=== PATIENT | female | born 1990 | race Caucasian/White ===

== ENCOUNTER 2016-10-21 16:39 | Emergency (ER) | payer MEDICAID, OTHER ==
[~2016-10-21] VITALS: Ht 172.7 cm; Wt 59.0 kg
[~2016-10-21 16:39] MED LIST: ACET50TA PO; ANUS2.5C2 TOP; DOCU10CA PO; FERR325T3 PO; IBUP80TA PO; IRON325T PO; PRENTAB40 PO; VITAPRTA PO
[2016-10-21 16:40] VITALS: BP 127/78
[2016-10-21] MEDS ORDERED: ESCI10TA2 (16:49)
[2016-10-21] MEDS ORDERED: [UNRECOGNIZED DRUG - OTHER] PO (16:49)
[2016-10-21] MEDS ORDERED: MULT1TAB18 PO (16:49)
[2016-10-21] MEDS ORDERED: ACETAMINOPHEN 325 MG TAB PO ONE (17:30)
--- NOTE | 2016-10-22 09:32 | REP ---
RIGHT TOES: HISTORY: None provided. __ There is no acute fracture or dislocation. The joint spaces are normal in appearance. IMPRESSION: There is no acute fracture or dislocation. Signed by Eliot Phipps MD 10/22/2016 09:37 A
== END 2016-10-21 18:07 | disposition home or self-care (01) ==
LOC: M ED 17:15
DX: S93.522A Sprain of metatarsophalangeal joint of left great toe, initial encounter (principal); X50.0XXA Overexertion from strenuous movement or load, initial encounter; Y92.019 Unspecified place in single-family (private) house as the place of occurrence of the external cause; Y93.01 Activity, walking, marching and hiking; Y99.8 Other external cause status; Z91.018 Allergy to other foods; Z79.899 Other long term (current) drug therapy

== ENCOUNTER 2016-11-15 01:03 | Emergency (ER) | payer MEDICAID, OTHER ==
[~2016-11-15] VITALS: Ht 172.7 cm; Wt 56.8 kg
[~2016-11-15 01:03] MED LIST changes: +ESCI10TA2; +MULT1TAB18 PO; +[UNRECOGNIZED DRUG - OTHER] PO
[2016-11-15] MEDS ORDERED: vitamin c PO (01:12)
[2016-11-15] MEDS ORDERED: VALT1TAB PO (01:43)
[2016-11-15] MEDS ORDERED: valACYclovir HCL 500 MG TAB PO ONE (01:45)
[2016-11-15] MEDS ORDERED: ACYCLOVIR 200 MG CAPSULE PO ONE (01:45)
[2016-11-15 01:55] VITALS: BP 108/69
== END 2016-11-15 02:05 | disposition home or self-care (01) ==
LOC: M ED 01:03
DX: B02.9 Zoster without complications (principal); F32.9 Major depressive disorder, single episode, unspecified; Z79.899 Other long term (current) drug therapy; Z91.018 Allergy to other foods

== ENCOUNTER 2016-12-08 16:29 | Emergency (ER) | payer MEDICAID, OTHER ==
[~2016-12-08] VITALS: Ht 172.7 cm; Wt 59.9 kg
[~2016-12-08 16:29] MED LIST changes: +VALT1TAB PO; +vitamin c PO
[2016-12-08 16:30] VITALS: BP 126/78
== END 2016-12-08 17:50 | disposition home or self-care (01) ==
LOC: M ED 16:29
DX: R04.0 Epistaxis (principal); Z79.899 Other long term (current) drug therapy; Z91.018 Allergy to other foods

== ENCOUNTER 2016-12-22 11:08 | Emergency (ER) | payer OTHER ==
[~2016-12-22] VITALS: Ht 172.7 cm; Wt 56.8 kg
[2016-12-22] MEDS ORDERED: ALBUTEROL SULFATE 2.5 MG/0.5 ML INH NEB SOLN NEB ONE (12:00)
[2016-12-22 12:31] LABS: BASO % 0.4 % (0.0-1.0); EOS % 0.5 % (0.0-3.0); LARGE UNSTAINED CELL # 0.1 K/mm3 (0.0-0.4); LARGE UNSTAINED CELL % 1.9 % (0.0-4.0); LYMPH # 1.3 K/mm3 (1.5-6.5); LYMPH % 25.5 % (24.0-44.0); MEAN CORPUSCULAR HEMOGLOBIN 30.3 pg (27.0-33.0); MEAN CORPUSCULAR HGB CONC 33.9 g/dl (32.0-36.5); MEAN CORPUSCULAR VOLUME 89.4 fl (80.0-96.0); MONO # 0.2 K/mm3 (0.0-0.8); MONO % 5.1 % (0.0-5.0); NEUTROPHILS # 3.2 K/mm3 (1.8-7.7); NEUTROPHILS % 66.6 % (36.0-66.0); PLATELET COUNT, AUTOMATED 236 k/mm3 (150-450); WHITE BLOOD COUNT 4.8 K/mm3 (4.0-10.0)
[2016-12-22 12:40] LABS: ANION GAP 4 MEQ/L (8-16); BLOOD UREA NITROGEN 10 MG/DL (7-18); CALCIUM LEVEL 8.9 MG/DL (8.5-10.1); CARBON DIOXIDE LEVEL 31 MEQ/L (21-32); CHLORIDE LEVEL 105 MEQ/L (98-107); CREATININE FOR GFR 0.73 MG/DL (0.55-1.02); GLOMERULAR FILTRATION RATE > 60.0 (>60); GLUCOSE, FASTING 87 MG/DL (70-105); POTASSIUM SERUM 4.4 MEQ/L (3.5-5.1); SODIUM LEVEL 140 MEQ/L (136-145)
[2016-12-22] MEDS ORDERED: ALBU17IN INH (13:54)
--- NOTE | 2016-12-22 13:57 | REP ---
CHEST PA AND LATERAL: 12/22/2016 CLINICAL HISTORY: Dyspnea and cough. Two views were provided. There are no prior studies. Lungs are well inflated. The CP angles sharply defined. There is no effusion, infiltrate, atelectasis or mass. No pneumothorax or pneumomediastinum. Heart and mediastinal contours are normal. Airway and aorta unremarkable. Bones intact. IMPRESSION: No acute cardiopulmonary change. Signed by Carlos Mederos MD 12/22/2016 10:20 P
[2016-12-22 14:08] VITALS: BP 112/76
--- NOTE | 2016-12-23 09:44 | ECGEPIP ---
Stationary ECG Study [facility] - ED Test Date: 2016-12-22 Pat Name: NAISH SHARP Department: Room: - Gender: F Banquet Captain: TM : 1990 Requested By: JUAN RAMON GAVIN PA-C Order Number: [id number] Reading MD: Telly Arthur Measurements Intervals [place] Rate: 70 P: 55 ME: 133 QRS: 74 QRSD: 87 T: 35 QT: 376 QTc: 408 Interpretive Statements SINUS RHYTHM INC. RBBB NO PRIORS Electronically Signed On 12-23-2016 9:44:52 EDT by Telly Arthur
== END 2016-12-22 14:09 | disposition home or self-care (01) ==
LOC: M ED 11:08
DX: J98.01 Acute bronchospasm (principal); F41.9 Anxiety disorder, unspecified; F32.9 Major depressive disorder, single episode, unspecified; J30.2 Other seasonal allergic rhinitis; Z79.3 Long term (current) use of hormonal contraceptives; Z79.899 Other long term (current) drug therapy; Z91.018 Allergy to other foods

== ENCOUNTER → 2017-04-10 | Outpatient (CLI) | payer OTHER ==
[~2017-04-10] MED LIST changes: +ALBU17IN INH
[2017-04-10 13:33] LABS: COMPLEMENT C3 114 MG/DL (90-180); COMPLEMENT C4 21.4 MG/DL (10-40); IMMUNOGLOBULIN G 1120 MG/DL (681-1648); IMMUNOGLOBULIN M 202 MG/DL (40-230)
[2017-04-10 14:07] LABS: IMMUNOGLOBULIN E < 3.6 IU/ML (<100)
[2017-04-14 14:10] LABS: ALPHA 1 ANTITRYPSIN 174 mg/dL (90-200); D001-IgE D pteronyssinus <0.10 kU/L (Class 0); E001-IgE Cat Epith/Dander < 0.10 kU/L (Class 0); E005-IgE Dog Dander < 0.10 kU/L (Class 0); F002-IgE Milk < 0.10 kU/L (Class 0); F004-IgE Wheat < 0.10 kU/L (Class 0); F013-IgE Peanut < 0.10 kU/L (Class 0); F014-IgE Soybean < 0.10 kU/L (Class 0); F026-IgE Pork < 0.10 kU/L (Class 0); F027-IgE Beef < 0.10 kU/L (Class 0); F044-IGE STRAWBERRY <0.10 kU/L (Class 0); F245-IgE Egg, Whole < 0.10 kU/L (Class 0); FX02-IgE Food Mix (Sea Foods) Negative (.); G002-IgE Bermuda Grass < 0.10 kU/L (Class 0); G008-IgE Kentucky Bluegrass < 0.10 kU/L (Class 0); M001-IgE Penicillium chrysogen < 0.10 kU/L (Class 0); M002 IgE Cladosporium herbaru < 0.10 kU/L (Class 0); M003 IgE Aspergillus fumigatu < 0.10 kU/L (Class 0); M006-IgE Alternaria alternata < 0.10 kU/L (Class 0); T001-IgE Maple/Box Elder < 0.10 kU/L (Class 0); T003-IgE Common Silver Birch < 0.10 kU/L (Class 0); T007-IgE Oak, White < 0.10 kU/L (Class 0); T008-IgE Elm, American < 0.10 kU/L (Class 0); T015-IgE Ash, White < 0.10 kU/L (Class 0); T041-IgE Hickory, White < 0.10 kU/L (Class 0); W001-IgE Ragweed, Short < 0.10 kU/L (Class 0); W009-IgE Plantain, English < 0.10 kU/L (Class 0); W014-IgE Pigweed, Rough < 0.10 kU/L (Class 0); W018-IgE Sheep Sorrel < 0.10 kU/L (Class 0)
== END ==
LOC: M LAB 12:29
PROVIDERS: ATTEND Allergy & Immunology
DX: R05 Cough (principal)

== ENCOUNTER → 2017-07-24 | Outpatient (CLI) | payer OTHER | LOC: M RAD 09:04 | DX: J32.4 Chronic pansinusitis (principal) | CPT/HCPCS: 70486 ==

== ENCOUNTER 2017-09-14 22:11 | Emergency (ER) | payer OTHER, SELFPAY, MEDICAID ==
[2017-09-14 23:49] LABS: BASO % 0.5 % (0.0-1.0); EOS % 0.3 % (0.0-3.0); HEMATOCRIT 41.2 % (36.0-47.0); HEMOGLOBIN 13.4 g/dl (12.0-15.5); IMMATURE GRANULOCYTE % 0.2 % (0-3.0); LYMPH # 1.6 10^3/uL (1.5-6.5); LYMPH % 17.7 % (24.0-44.0); MEAN CORPUSCULAR HEMOGLOBIN 28.7 pg (27.0-33.0); MEAN CORPUSCULAR HGB CONC 32.5 g/dl (32.0-36.5); MEAN CORPUSCULAR VOLUME 88.2 fl (80.0-96.0); MONO # 0.7 10^3/uL (0.0-0.8); MONO % 7.6 % (0.0-5.0); NEUTROPHILS # 6.4 10^3/uL (1.8-7.7); NEUTROPHILS % 73.7 % (36.0-66.0); PLATELET COUNT, AUTOMATED 282 10^3/uL (150-450); RED BLOOD COUNT 4.67 10^6/uL (4.00-5.40); RED CELL DISTRIBUTION WIDTH 12.7 % (11.5-14.5); WHITE BLOOD COUNT 8.7 10^3/uL (4.0-10.0)
[2017-09-14 23:52] LABS: CONTROL LINE HCG INT CTR LINE PRESENT; HCG, SERUM QUALITATIVE NEGATIVE (NEGATIVE)
[2017-09-14 23:59] LABS: ALBUMIN 3.8 GM/DL (3.2-5.2); ALBUMIN/GLOBULIN RATIO 0.97 (1.00-1.93); ALKALINE PHOSPHATASE 72 U/L (45-117); ALT/SGPT 106 U/L (12-78); ANION GAP 6 MEQ/L (8-16); AST/SGOT 85 U/L (7-37); BILIRUBIN,DIRECT 0.7 MG/DL (0.0-0.2); BLOOD UREA NITROGEN 12 MG/DL (7-18); CALCIUM LEVEL 9.2 MG/DL (8.5-10.1); CARBON DIOXIDE LEVEL 28 MEQ/L (21-32); CHLORIDE LEVEL 108 MEQ/L (98-107); GLOMERULAR FILTRATION RATE > 60.0 (>60); GLUCOSE, FASTING 88 MG/DL (70-100); LIPASE 167 U/L (73-393); POTASSIUM SERUM 4.1 MEQ/L (3.5-5.1); SODIUM LEVEL 142 MEQ/L (136-145); TOTAL PROTEIN 7.7 GM/DL (6.4-8.2)
[2017-09-15] MEDS: NS 1,000 ML IV (00:04)
[2017-09-15] MEDS: MORPHINE 4 MG/ML 1ML VIAL/SYRINGE (J2270) IV (00:05)
[2017-09-15] MEDS: ONDANSETRON 4MG/2ML VIAL (J2405) IV (00:05)
[2017-09-15] MEDS: OXYCODONE/APAP 5MG/325MG(BULK FOR ED) 1 TABLET PO (02:00)
== END 2017-09-15 02:06 | disposition home or self-care (01) ==
LOC: M ED 22:11
DX: K80.70 Calculus of gallbladder and bile duct without cholecystitis without obstruction (principal); Z91.018 Allergy to other foods
CPT/HCPCS: J2270

== ENCOUNTER → 2017-10-12 | Day surgery (SDC) | payer OTHER ==
[~2017-10-12] MED LIST changes: -ACET50TA PO; -ALBU17IN INH; -ANUS2.5C2 TOP; -DOCU10CA PO; -ESCI10TA2; -FERR325T3 PO; -IBUP80TA PO; -IRON325T PO; +LIDOCAINE 2% INJ 100 MG/5 ML SDV (FOR ANES.) As Ordered; +MIDAZOLAM INJ 2 MG/2 ML VIAL (J2250) As Ordered; -MULT1TAB18 PO; +ONDANSETRON 4MG/2ML VIAL (J2405) As Ordered; -PRENTAB40 PO; +PROPOFOL 200 MG/20 ML VIAL As Ordered; +ROCURONIUM BROMIDE 50 MG/5 ML VIAL As Ordered; -VALT1TAB PO; -VITAPRTA PO; -[UNRECOGNIZED DRUG - OTHER] PO; +dexameTHASONE 4 MG/ML 1ML VIAL (J1100) As Ordered; +fentaNYL 100 MCG/2 ML INJECTION (J3010) As Ordered; -vitamin c PO
== END | disposition home or self-care (01) ==
LOC: M SDC 11:00
DX: K80.20 Calculus of gallbladder without cholecystitis without obstruction (principal)

== ENCOUNTER → 2018-02-13 | Outpatient (REF) | payer OTHER | LOC: M SFHCPLAZ 07:46 | DX: R53.83 Other fatigue (principal) ==

== ENCOUNTER → 2018-02-13 | Outpatient (CLI) | payer OTHER ==
[2018-02-13 11:11] LABS: BASO % 0.5 % (0.0-1.0); EOS % 0.2 % (0.0-3.0); HEMATOCRIT 37.6 % (36.0-47.0); HEMOGLOBIN 12.3 g/dl (12.0-15.5); IMMATURE GRANULOCYTE % 0.2 % (0-3.0); LYMPH # 1.6 10^3/uL (1.5-6.5); LYMPH % 27.3 % (24.0-44.0); MEAN CORPUSCULAR HEMOGLOBIN 29.7 pg (27.0-33.0); MEAN CORPUSCULAR HGB CONC 32.7 g/dl (32.0-36.5); MEAN CORPUSCULAR VOLUME 90.8 fl (80.0-96.0); MONO # 0.4 10^3/uL (0.0-0.8); MONO % 6.9 % (0.0-5.0); NEUTROPHILS # 3.9 10^3/uL (1.8-7.7); NEUTROPHILS % 64.9 % (36.0-66.0); PLATELET COUNT, AUTOMATED 277 10^3/uL (150-450); RED BLOOD COUNT 4.14 10^6/uL (4.00-5.40); RED CELL DISTRIBUTION WIDTH 12.4 % (11.5-14.5)
[2018-02-13 12:22] LABS: ALBUMIN 3.6 GM/DL (3.2-5.2); ALBUMIN/GLOBULIN RATIO 1.03 (1.00-1.93); ALKALINE PHOSPHATASE 47 U/L (45-117); ALT/SGPT 29 U/L (12-78); ANION GAP 9 MEQ/L (8-16); AST/SGOT 16 U/L (7-37); BILIRUBIN,TOTAL 0.3 MG/DL (0.2-1.0); BLOOD UREA NITROGEN 11 MG/DL (7-18); CARBON DIOXIDE LEVEL 26 MEQ/L (21-32); CHLORIDE LEVEL 105 MEQ/L (98-107); CREATININE FOR GFR 0.69 MG/DL (0.55-1.30); FERRITIN 48 NG/ML (8-252); FREE T4 1.16 NG/DL (0.76-1.46); GLOMERULAR FILTRATION RATE > 60.0 (>60); GLUCOSE, FASTING 78 MG/DL (70-100); POTASSIUM SERUM 4.6 MEQ/L (3.5-5.1); SODIUM LEVEL 140 MEQ/L (136-145); TOTAL PROTEIN 7.1 GM/DL (6.4-8.2)
[2018-02-13 12:50] LABS: FOLATE 14.5 NG/ML; TOTAL 25(OH) VITAMIN D 28.6 NG/ML (30.0-100.0)
== END ==
LOC: M LAB 10:29
DX: R53.83 Other fatigue (principal)
CPT/HCPCS: 82746

== ENCOUNTER 2018-04-01 09:50 | Day surgery (SDC) | payer OTHER ==
[~2018-04-01 09:50] MED LIST changes: +LR 1,000 ML IV; -ONDANSETRON 4MG/2ML VIAL (J2405) As Ordered; -dexameTHASONE 4 MG/ML 1ML VIAL (J1100) As Ordered; -fentaNYL 100 MCG/2 ML INJECTION (J3010) As Ordered; +fentaNYL 250 MCG/5 ML INJECTION (J3010) As Ordered
[2018-04-01 10:36] LABS: CONTROL LINE UCG INT CTR LINE PRESENT; URINE PREG TEST NEGATIVE (NEGATIVE)
[2018-04-01] MEDS: LIDOCAINE W/EPINEPHRINE 1% 20ML VIAL As Ordered (12:25)
[2018-04-01] MEDS: METHYLENE BLUE 0.5% (5MG/ML) 10 ML AMP (PROVAYBLUE)(Q9968 PER 1MG) As Ordered (12:25)
[2018-04-01] MEDS: OXYMETAZOLINE NASAL SPRAY (AFRIN) As Ordered (12:25)
[2018-04-01] MEDS ORDERED: ONDANSETRON 4MG/2ML VIAL (J2405) As Ordered (12:28)
[2018-04-01] MEDS ORDERED: dexameTHASONE 4 MG/ML 1ML VIAL (J1100) As Ordered ×2 (12:28)
[2018-04-01] MEDS ORDERED: SUGAMMADEX SODIUM 500 MG/5 ML VIAL (BRIDION) As Ordered (13:01)
[2018-04-01] MEDS ORDERED: METOCLOPRAMIDE INJ 10MG/2ML VIAL (J2765) IV (13:45)
[2018-04-01] MEDS ORDERED: fentaNYL 100 MCG/2 ML INJECTION (J3010) IV (13:45)
[2018-04-01] MEDS ORDERED: PERCOCET 5MG/325MG TAB PO (13:45)
[2018-04-01] MEDS ORDERED: LR 1,000 ML IV (13:45)
[2018-04-01] MEDS ORDERED: ONDANSETRON 4MG/2ML VIAL (J2405) IV (13:45)
[2018-04-01] MEDS ORDERED: IBUPROFEN 800 MG TAB PO (13:45)
[2018-04-01] MEDS: PERCOCET 5MG/325MG TAB PO (14:10)
== END 2018-04-01 15:10 | disposition home or self-care (01) ==
LOC: M SDC 09:50
DX: J34.2 Deviated nasal septum (principal); J31.0 Chronic rhinitis; D64.9 Anemia, unspecified; F41.9 Anxiety disorder, unspecified; F32.9 Major depressive disorder, single episode, unspecified; R06.83 Snoring; Z91.018 Allergy to other foods; Z79.899 Other long term (current) drug therapy
CPT/HCPCS: 30420

== ENCOUNTER 2018-09-03 17:42 | Emergency (ER) | payer MEDICAID, OTHER ==
[~2018-09-03] VITALS: Ht 152.4 cm; Wt 61.4 kg
[~2018-09-03 17:42] MED LIST changes: +ALBU17IN INH; +ANUS2.5C2 TOP; +BUSP1TAB PO; +DOCU10CA PO; +ESCI10TA2 PO; +FERR325T3 PO; +FERR325T82 PO; +HYOS1TAB PO; +IBUP80TA PO; +IRON325T PO; -LIDOCAINE 2% INJ 100 MG/5 ML SDV (FOR ANES.) As Ordered; -LR 1,000 ML IV; +MAPA500T2 PO; -MIDAZOLAM INJ 2 MG/2 ML VIAL (J2250) As Ordered; +MODA200T15 PO; +MULT1TAB18 PO; +PRENTAB40 PO; -PROPOFOL 200 MG/20 ML VIAL As Ordered; -ROCURONIUM BROMIDE 50 MG/5 ML VIAL As Ordered; +VALT1TAB PO; +VITA100066 PO; +VITA500T PO; +VITAPRTA PO; +XULA1DIS TOP; +ZOFR4TAB14 PO; +[UNRECOGNIZED DRUG - OTHER] PO; -fentaNYL 250 MCG/5 ML INJECTION (J3010) As Ordered; +vitamin c PO
[2018-09-03] MEDS ORDERED: ADDE10TA (17:51)
[2018-09-03] MEDS ORDERED: ADDE15CA3 (17:51)
[2018-09-03] MEDS ORDERED: BUSP10TA (17:51)
[2018-09-03] MEDS ORDERED: AUGM875T28 PO (19:29)
[2018-09-03] MEDS ORDERED: MAGICMW SSP (19:29)
[2018-09-03] MEDS ORDERED: AUGMENTIN 875 MG TAB PO ONE (19:30)
[2018-09-03] MEDS ORDERED: ACETAMINOPHEN 500 MG TAB PO ONE (19:30)
[2018-09-03 19:40] VITALS: BP 127/88
== END 2018-09-03 19:44 | disposition home or self-care (01) ==
LOC: M ED 17:42
DX: J02.0 Streptococcal pharyngitis (principal); Z91.018 Allergy to other foods; Z79.899 Other long term (current) drug therapy

== ENCOUNTER → 2018-11-28 | Outpatient (REF) | payer OTHER, MEDICAID ==
[~2018-11-28] MED LIST changes: +ADDE10TA; +ADDE15CA3; +AUGM875T28 PO; +BUSP10TA; +BUSP10TA PO; +MAGICMW SSP; +[UNRECOGNIZED DRUG - OTHER] PO
[2018-11-28 19:07] LABS: ALBUMIN 3.4 GM/DL (3.2-5.2); ALT/SGPT 23 U/L (12-78); BILIRUBIN,TOTAL 0.2 MG/DL (0.2-1.0); BLOOD UREA NITROGEN 12 MG/DL (7-18); CALCIUM LEVEL 8.5 MG/DL (8.5-10.1); CARBON DIOXIDE LEVEL 27 MEQ/L (21-32); CHLORIDE LEVEL 105 MEQ/L (98-107); CHOLESTEROL LEVEL 166 MG/DL (<200); CHOLESTEROL RISK RATIO 2.049 (<5); CREATININE FOR GFR 0.77 MG/DL (0.55-1.30); FREE T4 1.07 NG/DL (0.76-1.46); GLOMERULAR FILTRATION RATE > 60.0 (>60); GLUCOSE, FASTING 85 MG/DL (70-100); HDL CHOLESTEROL 81 MG/DL (>40); LDL CHOLESTEROL 56 MG/DL (<100); NON-HDL-C 85 MG/DL; POTASSIUM SERUM 4.5 MEQ/L (3.5-5.1); SODIUM LEVEL 138 MEQ/L (136-145); TOTAL PROTEIN 7.2 GM/DL (6.4-8.2); TRIGLYCERIDES LEVEL 146 MG/DL (<150)
[2018-11-28 19:08] LABS: TOTAL 25(OH) VITAMIN D 22.5 NG/ML (30.0-100.0)
[2018-11-28 19:25] LABS: APPEARANCE, URINE CLEAR (CLEAR); BACTERIA, URINE AUTO NEGATIVE (NEGATIVE); BILIRUBIN, URINE AUTO NEGATIVE (NEGATIVE); BLOOD, URINE BLOOD NEGATIVE (NEGATIVE); COLOR, URINE YELLOW (YELLOW); GLUCOSE, URINE (UA) AUTO NEGATIVE (NEGATIVE); KETONE, URINE AUTO NEGATIVE (NEGATIVE); LEUKOCYTE ESTERASE, URINE AUTO NEGATIVE (NEGATIVE); MUCUS, URINE SMALL (NEGATIVE); NITRITE, URINE AUTO NEGATIVE (NEGATIVE); PROTEIN, URINE AUTO NEGATIVE (NEGATIVE); RBC, URINE AUTO 0 /HPF (0-3); SPECIFIC GRAVITY URINE AUTO 1.021 (1.002-1.035); SQUAMOUS EPITHELIAL CELL UR AU 2 /HPF (0-6); UROBILINOGEN, URINE AUTO 0.2 mg/dL (0.0-2.0); WBC, URINE AUTO 1 /HPF (0-3)
[2018-11-28 19:26] LABS: BASO % 0.4 % (0.0-1.0); EOS % 0.4 % (0.0-3.0); HEMATOCRIT 38.7 % (36.0-47.0); HEMOGLOBIN 12.2 g/dl (12.0-15.5); LYMPH # 1.7 10^3/uL (1.5-6.5); LYMPH % 20.6 % (24.0-44.0); MEAN CORPUSCULAR HEMOGLOBIN 29.5 pg (27.0-33.0); MEAN CORPUSCULAR HGB CONC 31.5 g/dl (32.0-36.5); MEAN CORPUSCULAR VOLUME 93.5 fl (80.0-96.0); MONO # 0.6 10^3/uL (0.0-0.8); MONO % 6.8 % (0.0-5.0); NEUTROPHILS % 71.4 % (36.0-66.0); PLATELET COUNT, AUTOMATED 260 10^3/uL (150-450); RED BLOOD COUNT 4.14 10^6/uL (4.00-5.40); WHITE BLOOD COUNT 8.4 10^3/uL (4.0-10.0)
[2018-11-28 19:37] LABS: HEMOGLOBIN A1c 5.8 %
== END ==
LOC: M LAB REF 16:48
PROVIDERS: ATTEND Nurse Practitioner Family
DX: Z13.9 Encounter for screening, unspecified (principal)

== ENCOUNTER 2019-03-01 15:41 | Emergency (ER) | payer MEDICAID, OTHER ==
[~2019-03-01] VITALS: Ht 172.7 cm; Wt 63.1 kg
[~2019-03-01 15:41] MED LIST changes: -BUSP10TA PO; -[UNRECOGNIZED DRUG - OTHER] PO
[2019-03-01] MEDS ORDERED: BUSP10TA PO (16:06)
[2019-03-01] MEDS ORDERED: [UNRECOGNIZED DRUG - OTHER] PO (16:06)
[2019-03-01 16:43] LABS: HEMATOCRIT 40.6 % (36.0-47.0); HEMOGLOBIN 13.4 g/dl (12.0-15.5); MEAN CORPUSCULAR HEMOGLOBIN 29.6 pg (27.0-33.0); MEAN CORPUSCULAR VOLUME 89.8 fl (80.0-96.0); PLATELET COUNT, AUTOMATED 278 10^3/uL (150-450); RED BLOOD COUNT 4.52 10^6/uL (4.00-5.40); WHITE BLOOD COUNT 9.3 10^3/uL (4.0-10.0)
[2019-03-01 17:09] LABS: AMPHETAMINES LEVEL URINE NEGATIVE (NEGATIVE); BARBITURATES URINE NEGATIVE (NEGATIVE); BENZODIAZEPINES URINE NEGATIVE (NEGATIVE); CANNABINOIDS URINE POSITIVE (NEGATIVE); COCAINE METABOLITE URINE NEGATIVE (NEGATIVE); METHADONE URINE NEGATIVE (NEGATIVE); OPIATES URINE NEGATIVE (NEGATIVE); PHENCYCLIDINE URINE NEGATIVE (NEGATIVE)
[2019-03-01 17:13] LABS: HCG, SERUM QUALITATIVE NEGATIVE (NEGATIVE)
[2019-03-01 17:31] LABS: ACETAMINOPHEN LEVEL < 2.0 UG/ML (10.0-30.0); ALBUMIN 3.8 GM/DL (3.2-5.2); ALT/SGPT 21 U/L (12-78); BILIRUBIN,DIRECT 0.2 MG/DL (0.0-0.2); BILIRUBIN,TOTAL 0.6 MG/DL (0.2-1.0); BLOOD UREA NITROGEN 14 MG/DL (7-18); CARBON DIOXIDE LEVEL 26 MEQ/L (21-32); CHLORIDE LEVEL 103 MEQ/L (98-107); ETHYL ALCOHOL (ETHANOL) < 0.003 % (0.000-0.010); GLOMERULAR FILTRATION RATE > 60.0 (>60); GLUCOSE, FASTING 102 MG/DL (70-100); POTASSIUM SERUM 4.3 MEQ/L (3.5-5.1); SALICYLATE LEVEL < 1.7 MG/DL (5.0-30.0); SODIUM LEVEL 136 MEQ/L (136-145); TOTAL PROTEIN 7.5 GM/DL (6.4-8.2)
[2019-03-01 20:04] VITALS: BP 141/93
== END 2019-03-01 20:07 | disposition home or self-care (01) ==
LOC: M ED 15:41
DX: R45.4 Irritability and anger (principal); Z73.4 Inadequate social skills, not elsewhere classified; Z91.018 Allergy to other foods; Z79.899 Other long term (current) drug therapy
CPT/HCPCS: 36415; 80048; 80076; 80307; 84443; 84703; 85027; 99284; G0480

== ENCOUNTER → 2019-04-05 | Outpatient (REF) | payer OTHER, MEDICAID ==
[~2019-04-05] MED LIST changes: +BUSP10TA PO; +[UNRECOGNIZED DRUG - OTHER] PO
[2019-04-05 18:52] LABS: URINE PREG TEST NEGATIVE (NEGATIVE)
== END ==
LOC: M LAB REF 10:48
PROVIDERS: ATTEND Nurse Practitioner Family
DX: Z32.01 Encounter for pregnancy test, result positive (principal)

== ENCOUNTER → 2019-12-29 | Outpatient (REF) | payer OTHER, MEDICAID ==
[~2019-12-29] MED LIST changes: +VITA-243 PO; -VITA500T PO
== END ==
LOC: M LAB REF 14:59
PROVIDERS: ATTEND Nurse Practitioner Family
DX: Z32.01 Encounter for pregnancy test, result positive (principal)

== ENCOUNTER 2020-01-16 14:15 | Emergency (ER) | payer MEDICAID, OTHER ==
[~2020-01-16] VITALS: Ht 172.7 cm; Wt 67.9 kg
[2020-01-16 15:52] LABS: BASO % 0.5 % (0.0-1.0); EOS % 0.5 % (0.0-3.0); HEMOGLOBIN 12.1 g/dl (12.0-15.5); LYMPH # 1.9 10^3/uL (1.5-5.0); LYMPH % 21.8 % (24.0-44.0); MEAN CORPUSCULAR HEMOGLOBIN 28.7 pg (27.0-33.0); MEAN CORPUSCULAR HGB CONC 32.7 g/dl (32.0-36.5); MEAN CORPUSCULAR VOLUME 87.7 fl (80.0-96.0); MONO # 0.6 10^3/uL (0.0-0.8); MONO % 6.3 % (0.0-5.0); NEUTROPHILS # 6.3 10^3/uL (1.5-8.5); NEUTROPHILS % 70.6 % (36.0-66.0); PLATELET COUNT, AUTOMATED 256 10^3/uL (150-450); RED BLOOD COUNT 4.22 10^6/uL (4.00-5.40); WHITE BLOOD COUNT 8.9 10^3/uL (4.0-10.0)
--- NOTE | 2020-01-16 16:32 | REPVR ---
PROCEDURE INFORMATION: Exam: US First Trimester, Transabdominal Exam date and time: 01/16/2020 4:06 PM Age: 29 years old Clinical indication: Lmp or gestational age (in weeks): 12/18/2019; Antepartum complications; Other: Vomiting and cramping; ; Additional info: , pelvic pain/cramping TECHNIQUE: Imaging protocol: Real-time transabdominal obstetrical ultrasound of the maternal pelvis and a first trimester , less than 14 weeks 0 days, with image documentation. COMPARISON: No relevant prior studies available. FINDINGS: Gestation: Single intrauterine gestational sac. Single yolk sac. Single pole. Embryonic/ heart rate: heart rate measures 167 bpm. Placenta: There is a small hypoechoic collection adjacent to the gestational sac, measuring 1.4 x 1.0 x 1.6 cm. This is favored to represent a small subchorionic hemorrhage. Amniotic fluid: Amniotic fluid is normal for gestational age. BIOMETRY: Gestational age (AUA): [place]-rump length measures 21 mm, compatible with a gestational age of 8 weeks and 5 days. Estimated due date (AUA): Estimated date of delivery is August 22, 2020. MATERNAL: Uterus: Unremarkable. Cervix: Unremarkable. Right adnexa: Dominant 1.8 cm right ovarian follicle. Positive right ovarian blood flow. Left adnexa: Normal appearing left ovary. Positive blood flow. Intraperitoneal space: No intraperitoneal free fluid. IMPRESSION: 1. Single viable intrauterine gestation, dating 8 weeks and 5 days. 2. Tiny subchorionic hemorrhage. Electronically signed by: Loreto Jarvis On 01/16/2020 16:32:02 PM
[2020-01-16 17:00] VITALS: BP 128/68
== END 2020-01-16 17:35 | disposition home or self-care (01) ==
LOC: M ED 14:15
DX: O20.9 Hemorrhage in early pregnancy, unspecified (principal); O26.891 Other specified pregnancy related conditions, first trimester; R10.2 Pelvic and perineal pain; Z3A.01 Less than 8 weeks gestation of pregnancy; Z91.018 Allergy to other foods

== ENCOUNTER → 2020-02-02 | Outpatient (CLI) | payer OTHER ==
--- NOTE | 2020-02-19 12:36 | REP ---
OBSTETRIC SONOGRAPHY: FIRST TRIMESTER STUDY HISTORY: Supervision of . FINDINGS: Transabdominal scanning confirms the presence of a single live intrauterine gestation. [place]-rump length of the embryonic pole is 46 mm. This corresponds with a gestational age estimate of 11 weeks 3 days. heart rate is recorded at 154 beats per minute. There is a subchorionic fluid collection consistent with small hemorrhage. This measures 1.9 x 0.5 x 4.4 cm. There is a small cystic area in the maternal left ovary consistent with corpus luteum. No gross anomaly. IMPRESSION: Single live intrauterine gestation at 11 weeks 3 days by crown-rump length. Estimated date of delivery (ANNA MARIE) by sonography 08/20/2020. Small subchorionic hemorrhage. MTDD
== END ==
LOC: M RAD 11:58
PROVIDERS: ATTEND Advanced Practice Midwife
DX: Z34.80 Encounter for supervision of other normal pregnancy, unspecified trimester (principal)

== ENCOUNTER → 2020-04-05 | Outpatient (CLI) | payer OTHER ==
--- NOTE | 2020-04-06 04:29 | REP ---
INDICATION: ANATOMY COMPARISON: None. TECHNIQUE: Transabdominal obstetrical ultrasound with color Doppler evaluation. FINDINGS: Examination demonstrates a single live intrauterine in breech presentation. motion is identified by technologist. Placenta is noted posterior and grade 0 without evidence for placenta previa or abruption. Amniotic fluid volume is normal. Cervix measures 3.6 cm in length and appears closed.. Gestational age by LMP 15 weeks 4 days with ANNA MARIE 09/23/2020. Gestational age by current measurements 20 weeks 0 days with ANNA MARIE 08/23/2020 Gestational age by 1st U/S 20 weeks 3 days with ANNA MARIE 08/20/2020. FHR equals 145 beats per minute. BPD: 4.6 cm 20 weeks 0 days HC: 17.1 cm 19 weeks 5 days AC: 15.0 cm 20 weeks 2 days FL: 3.1 cm 19 weeks 5 days HL: 3.1 cm 20 weeks 3 days HC/AC: 1.14 Estimated weight 324 grams (43rd percentile based on current age and age by 1st ultrasound; greater than 97th percentile based on age by age by LMP). Anatomical assessment demonstrates normal structures including cranium, cavum, cerebellum/posterior fossa, facial features, lungs, four-chamber heart, diaphragm, stomach, cord insertion/three-vessel cord, kidneys/bladder, spine, and extremities. Left choroid plexus cyst measuring 6 mm. Limited evaluation of the cardiac ventricular outflow tracts noted due to positioning. IMPRESSION: 1. Single live intrauterine in breech presentation demonstrating appropriate estimated weight and interval growth when compared with 1st ultrasound. 2. Choroid plexus cyst and limited evaluation of the cardiac ventricular outflow tracts may warrant re-evaluation and follow-up. <Electronically signed by Amish Paul > 04/06/20 0424
== END ==
LOC: M RAD 13:40
PROVIDERS: ATTEND Advanced Practice Midwife
DX: O32.1XX0 Maternal care for breech presentation, not applicable or unspecified (principal); Z3A.20 20 weeks gestation of pregnancy

== ENCOUNTER → 2020-05-04 | Outpatient (CLI) | payer OTHER ==
--- NOTE | 2020-05-04 14:54 | REP ---
INDICATION: ANATOMY, REEVALUATE CHOROID PLEXUS CYST AND VENTRICULAR FLOW. COMPARISON: 04/05/2020 TECHNIQUE: Ultrasound evaluation of the gravid uterus. FINDINGS: On the prior study there was a choroid plexus cyst and the cardiac ventricular outflow tracks on the right and left or not optimally demonstrated. IMPRESSION: On the study today there is no identifiable choroid plexus cyst. The previous cyst as likely resolved. On the study today the left ventricular cardiac outflow tract is optimally demonstrated and is unremarkable. The right cardiac ventricular outflow tract is again not optimally demonstrated because of position On the study today the right and left upper extremities are suboptimally demonstrated, however, they were optimally demonstrated previously and were unremarkable. The remainder of the anatomy today is unremarkable and unchanged from the prior study. There is a single intrauterine gestation in a cephalic presentation. The placenta is posterior with grade 1 maturity. There is no placenta previa. The cervix measures 4.6 cm in length. heart rate is 153 beats per minute. The ultrasound gestational age today is 24 weeks 3 days with an ANNA MARIE of 08/21/2020. Gestational age by the 1st ultrasound is 24 weeks 4 days with an ANNA MARIE of 08/20/2020. Gestational age by LMP is 19 weeks 5 days with an ANNA MARIE of 10/23/2020. weight is 679 g, 1 lb-7 oz. This is the 47th percentile for 24 weeks 4 days. <Electronically signed by Geo Giordano > 05/04/20 [id number]
== END ==
LOC: M RAD 12:19
PROVIDERS: ATTEND Obstetrics & Gynecology
DX: Z34.83 Encounter for supervision of other normal pregnancy, third trimester (principal); Z3A.24 24 weeks gestation of pregnancy

== ENCOUNTER → 2020-05-21 | Outpatient (CLI) | payer OTHER ==
[2020-05-21 15:01] LABS: HEMATOCRIT 38.1 % (36.0-47.0); HEMOGLOBIN 12.4 g/dl (12.0-15.5); MEAN CORPUSCULAR HEMOGLOBIN 29.7 pg (27.0-33.0); MEAN CORPUSCULAR HGB CONC 32.5 g/dl (32.0-36.5); MEAN CORPUSCULAR VOLUME 91.1 fl (80.0-96.0); PLATELET COUNT, AUTOMATED 237 10^3/uL (150-450); RED BLOOD COUNT 4.18 10^6/uL (4.00-5.40); WHITE BLOOD COUNT 14.2 10^3/uL (4.0-10.0)
== END ==
LOC: M LAB 13:34
PROVIDERS: ATTEND Obstetrics & Gynecology
DX: Z34.82 Encounter for supervision of other normal pregnancy, second trimester (principal)

== ENCOUNTER → 2020-07-06 | Outpatient (REF) | payer OTHER ==
[~2020-07-06] MED LIST changes: +ESCI10TA16 PO; -ESCI10TA2 PO
== END ==
LOC: M LAB REF 11:19
PROVIDERS: ATTEND Obstetrics & Gynecology
DX: N39.0 Urinary tract infection, site not specified (principal)

== ENCOUNTER → 2020-07-22 | Outpatient (REF) | payer OTHER | LOC: M LAB REF 12:10 | PROVIDERS: ATTEND Obstetrics & Gynecology | DX: Z34.83 Encounter for supervision of other normal pregnancy, third trimester (principal) ==

== ENCOUNTER 2020-08-22 12:36 | Outpatient (CLI) | payer OTHER ==
[~2020-08-22] VITALS: Ht 170.2 cm; Wt 82.0 kg
[2020-08-22 12:52] VITALS: BP 125/79
[2020-08-22] MEDS ORDERED: PRENTAB9 PO (13:00)
--- NOTE | 2020-08-22 13:40 | IPNPDOC ---
Obstetrical Progress Note Date of Service Aug 22, 2020 Subjective 30yo at 40+2 weeks EGA. Presents for a labor check. Complains of vaginal/pelvic pressure. Denies frequent, painful uterine contractions. No loss of fluid or vaginal bleeding. Reports regular, frequent movement. ROS: No CARMICHAEL, visual changes, RUQ pain, sob, cp, n/v/f/c. complications: Uncomplicated PMH: depression SH: rhinoplasty OB: Term 1 [employer]: no STI Meds: PNV All: NKDA O: Normotensive, normal HR, afebrile Abd: soft,nt,nd, no fundal tenderness SVE: 2 cm, 50 %, -3, cephalic, intact, small amount of bloody show; minimal filter changer several hours. EFM: Cat I / Reactive [place]: contractions every 3-5min; palpated as mild. A/P: 30 yo 3 P1011 at 40+2 weeks EGA. Latent labor; no evidence of active labor or ROM. Reassuring maternal and status. -Routine third trimester precautions given. -Follow up in office as schedule, pt has appointment a 40+[address] Quispe. Madan Scott DO FACOG. Objective Vital Signs Date Time Temp Pulse Resp B/P (MAP) Pulse Ox O2 Delivery O2 Flow Rate FiO2 08/22/20 12:52 97.1 95 18 125/79 (94) HEATHER SCOTT DO Aug 22, 2020 13:40
== END 2020-08-22 13:38 | disposition home or self-care (01) ==
LOC: M LDO 12:36
PROVIDERS: ATTEND Obstetrics & Gynecology
DX: O48.0 Post-term pregnancy (principal); Z3A.40 40 weeks gestation of pregnancy

== ENCOUNTER 2020-08-25 07:23 | Inpatient (IN) | payer OTHER ==
[~2020-08-25] VITALS: Ht 170.2 cm; Wt 83.2 kg
[2020-08-25] VITALS (30 sets, daily range): BP systolic 104–141; BP diastolic 53–95
[~2020-08-25 07:23] MED LIST changes: +PRENTAB9 PO
[2020-08-25] MEDS ORDERED: LACTATED RINGER'S 1000 ML IV STA (07:34)
[2020-08-25] MEDS ORDERED: LR 1,000 ML IV SCH (07:35)
[2020-08-25] MEDS ORDERED: OXYTOCIN DRIP 30 UNITS in IV 1 EA IV SCH (07:35)
[2020-08-25 08:29] LABS: HEMATOCRIT 34.3 % (36.0-47.0); HEMOGLOBIN 10.8 g/dl (12.0-15.5); MEAN CORPUSCULAR HEMOGLOBIN 28.3 pg (27.0-33.0); MEAN CORPUSCULAR HGB CONC 31.5 g/dl (32.0-36.5); MEAN CORPUSCULAR VOLUME 89.8 fl (80.0-96.0); PLATELET COUNT, AUTOMATED 207 10^3/uL (150-450); RED BLOOD COUNT 3.82 10^6/uL (4.00-5.40); WHITE BLOOD COUNT 9.3 10^3/uL (4.0-10.0)
[2020-08-25] MEDS ORDERED: FENTANYL 2MCG/ML ROPIVACAINE 0.2% IN 0.9% NACL 100ML IVBAG As Ordered ONE (14:10)
[2020-08-25] MEDS ORDERED: ONDANSETRON 4MG/2ML VIAL IV PRN (14:25)
[2020-08-25] MEDS ORDERED: EPIDURAL COMMENT XX SCH (14:25)
[2020-08-25] MEDS ORDERED: EPIDURAL/PCA KEYS XX PRN (14:25)
[2020-08-25] MEDS ORDERED: ePHEDrine SULFATE 25 MG/5 ML(5MG/ML) SYRINGE IV PRN (14:25)
[2020-08-25] MEDS ORDERED: NALOXONE INJ 0.4MG/1ML VIAL (J2310 PER 1MG) IV PRN (14:25)
[2020-08-25] MEDS ORDERED: diphenhydrAMINE 50MG/ML VIAL (J1200) IV PRN (14:25)
[2020-08-25] MEDS ORDERED: FENTANYL/ROPIVACAINE/NACL BAG 100 ML EPIDURAL SCH (14:25)
[2020-08-25] MEDS ORDERED: LACTATED RINGER'S 1000 ML IV PRN (14:25)
[2020-08-25] MEDS ORDERED: REFRIGERATOR IV KEYS XX PRN (14:25)
[2020-08-25 18:35] LABS: CORD GAS ABE A -5.7; CORD GAS HCO3 A 22.1 MEQ/L; CORD GAS O2 SAT A 41.4 %; CORD GAS PCO2 A 52.2 mmHg; CORD GAS PH A 7.245 UNITS; CORD GAS PO2 A 20.5 mmHg; CORD GAS SBC A 18.6 MEQ/L; CORD GAS TCO2 A 23.7 MEQ/L
[2020-08-25] MEDS ORDERED: DIBUCAINE 1% OINTMENT 30GM TOP PRN (18:35)
[2020-08-25] MEDS ORDERED: ACETAMINOPHEN TAB 650MG DOSE (2X325MG) PO PRN (18:35)
[2020-08-25] MEDS ORDERED: DOCUSATE SODIUM 100MG CAPSULE PO PRN (18:35)
[2020-08-25] MEDS ORDERED: ACETAMINOPHEN 500 MG TAB PO PRN (18:35)
[2020-08-25] MEDS ORDERED: IBUPROFEN 600MG TAB PO PRN (18:35)
[2020-08-25] MEDS ORDERED: MEASLES,MUMPS,RUBELLA VACCINE INJ (MMR-II) (90707) SC SCH (18:35)
[2020-08-25] MEDS ORDERED: RHOGAM 300 MCG (1500 IU) INJ (J2790) IM SCH (18:35)
[2020-08-25] MEDS ORDERED: METHYLERGONOVINE MALEATE 0.2 MG TAB PO PRN (18:35)
[2020-08-25 18:36] LABS: CORD GAS ABE V -4.4; CORD GAS O2 SAT V 76.7 %; CORD GAS PCO2 V 39.8 mmHg; CORD GAS PH V 7.34 UNITS; CORD GAS PO2 V 34.6 mmHg; CORD GAS SBC V 20.4 MEQ/L; CORD GAS TCO2 V 22.2 MEQ/L
[2020-08-25] MEDS ORDERED: OXYTOCIN DRIP 30 UNITS in IV 1 EA IV ONE (19:15)
[2020-08-26 05:59] VITALS: BP 120/70
[2020-08-26] MEDS: PRENATAL VITAMINS CHEWABLE TABLET PO SCH (08:09)
--- NOTE | 2020-08-26 08:10 | HPE ---
HISTORY AND PHYSICAL DATE OF ADMISSION: 08/25/2020 HISTORY OF PRESENT ILLNESS: Vera is a 30-year-old female 3 para 1-0-1-1 with an EDC of 08/20/2020, EGA 40 and 4/7th weeks gestation, who was admitted for an induction, on admission no bleeding, no leakage of fluid, irregular contractions, good movement. Her records reviewed which were essentially unremarkable. labs: Blood type is O negative, rubella immune, hepatitis negative, HIV negative, GC and chlamydia negative. One hour sugar testing was done and within normal limits, GBS is negative. PAST MEDICAL HISTORY: Significant for depression. PAST SURGICAL HISTORY: Significant for rhinoplasty in 2019. SOCIAL HISTORY: She denies any alcohol, drugs or cigarette smoking. REVIEW OF SYSTEMS: Unremarkable. FAMILY HISTORY: Unremarkable. PHYSICAL EXAMINATION: Normal appearing female in no acute distress. Abdomen is soft, nontender and nondistended. Extremities: No clubbing, cyanosis or edema. Vaginal exam: 3 or 4 cm dilated, 70% effaced, fetus -2 station in vertex position. Tracing reviewed, Category 1 tracing. ASSESSMENT: Intrauterine at 40 and 4/7th weeks gestation being admitted for an induction. PLAN: Admit to Labor and Delivery, induction process discussed. Patient will undergo artifical rupture of membranes followed by Pitocin induction. Pain management also discussed. Patient offered an epidural. Will continue to monitor. Anticipate delivery. cc: [facility]
--- NOTE | 2020-08-26 12:55 | DN ---
DELIVERY NOTE DATE OF DELIVERY: 08/25/2020 TIME OF : GENDER: Female. APGARS: 9, 9. LACERATIONS: ANESTHESIA: ESTIMATED BLOOD LOSS: 250 mL. COUNTS: DESCRIPTION OF DELIVERY: Vera is a 30-year-old female 3, para 1,0,1,1 who was admitted at 40 and 4/7 weeks gestation for induction. She underwent artificial rupture of membranes followed by Pitocin augmentation. She then progressed to fully dilated after an epidural, she pushed and delivered a live female infant from left occiput anterior position over intact perineum, Apgars 9 ad 9, weight 8 pounds 1 ounce. Placenta delivered spontaneously intact, three vessel cord. Perineum, vagina, cervix inspected, no laceration noted. Estimated blood loss 250 mL. Both mother and baby in stable condition. cc: [facility].
[2020-08-26] MEDS: IBUPROFEN 800 MG TAB PO PRN (15:10)
[2020-08-26 18:00] VITALS: BP 132/85
[2020-08-27] MEDS: IBUPROFEN 800 MG TAB PO PRN (04:29)
[2020-08-27 06:00] VITALS: BP 111/72
--- NOTE | 2020-08-27 07:45 | IPNPDOC ---
Progress Note Date of Service: Aug 27, 2020 Day#: 2 Progress Note SUBJECT: Status post . She has been ambulating, voiding spontaneously without issue and tolerating regular diet. Lochia decreasing/minimal. Pain is well-controlled. Denies headache, visual changes, right upper quadrant pain, shortness breath or chest pain. OBJECTIVE: VITAL SIGNS: Within normal limits, afebrile. Alert and oriented times three. Abdomen: Fundus firm at U-2. Soft, NTTP. ASSESSMENT: Status post uncomplicated spontaneous vaginal delivery. Vitals within normal limits, afebrile, hemodynamically stable with no evidence of infection. PLAN: Discharge to home today. Tylenol and Motrin for pain. Routine instructions/precautions reviewed. Routine PP visit in 6 weeks in clinic. VS, I&O, 24H, Fishbone Vital Signs/I&O Vital Signs Date Time Temp Pulse Resp B/P (MAP) Pulse Ox O2 Delivery O2 Flow Rate FiO2 08/27/20 06:00 98.0 70 18 111/72 (85) 08/25/20 07:46 98 Room Air I&O- Last 24 Hours up to 6 AM 08/27/20 05:59 Intake Total 500 ml Balance 500 ml HEATHER SCOTT DO Aug 27, 2020 07:45
[2020-08-27] MEDS: PRENATAL VITAMINS CHEWABLE TABLET PO SCH (08:08)
== END 2020-08-27 10:30 | disposition home or self-care (01) | DRG 560 ==
LOC: M LDI 07:23 → M OBS 20:30
PROVIDERS: ADMIT Obstetrics & Gynecology; ATTEND Obstetrics & Gynecology
PROC: 10E0XZZ Delivery of Products of Conception, External Approach (ICD-10-PCS; principal; 2020-08-25)
PROC: 10907ZC Drainage of Amniotic Fluid, Therapeutic from Products of Conception, Via Natural or Artificial Opening (ICD-10-PCS; 2020-08-25)
PROC: 3E033VJ Introduction of Other Hormone into Peripheral Vein, Percutaneous Approach (ICD-10-PCS; 2020-08-25)
DX: O48.0 Post-term pregnancy (principal); Z37.0 Single live birth; Z3A.40 40 weeks gestation of pregnancy

== ENCOUNTER → 2021-03-08 | Outpatient (REF) | payer OTHER | LOC: M LAB REF 17:21 | PROVIDERS: ATTEND Surgery | DX: D17.21 Benign lipomatous neoplasm of skin and subcutaneous tissue of right arm (principal) ==

== ENCOUNTER → 2025-05-11 | Outpatient (REF) | payer MEDICAID, OTHER ==
[~2025-05-11] MED LIST changes: +CEPH250T PO; +IBUP-1114 PO; +NORE1PAT; +ONDA-282 PO; +SULF-7 PO
[2025-05-11 13:20] LABS: BASO # 0.0 10^3/uL (0.0-0.2); BASO % 0.6 % (0.0-1.0); EOS # 0.1 10^3/uL (0.0-0.5); EOS % 2.3 % (0.0-3.0); LYMPH # 1.6 10^3/uL (1.5-5.0); LYMPH % 25.8 % (24.0-44.0); MONO # 0.4 10^3/uL (0.0-0.8); MONO % 6.5 % (2.0-8.0); NEUTROPHILS # 4.0 10^3/uL (1.5-8.5); NEUTROPHILS % 64.5 % (36.0-66.0); PLATELET COUNT, AUTOMATED 278 10^3/uL (150-450)
[2025-05-11 13:23] LABS: ALT/SGPT 19 U/L (7.0-40); AST/SGOT 14 U/L (<34); CALCIUM LEVEL 8.5 MG/DL (8.5-10.1); CARBON DIOXIDE LEVEL 26 MMOL/L (20-31); CHLORIDE LEVEL 105 MMOL/L (98-107); CHOLESTEROL LEVEL 175 MG/DL (<200); CHOLESTEROL RISK RATIO 2.52 (<5); CREATININE FOR GFR 0.86 MG/DL (0.55-1.30); GLOMERULAR FILTRATION RATE > 90.0 (>60); IRON (FE) 184 UG/DL (50-170); LDL CHOLESTEROL 73.4 MG/DL (<100); NON-HDL-C 105.8 MG/DL; POTASSIUM SERUM 4.2 MMOL/L (3.5-5.1); SODIUM LEVEL 139 MMOL/L (136-145); TRIGLYCERIDES LEVEL 162 MG/DL (<150)
[2025-05-11 13:26] LABS: VITAMIN B12 LEVEL 423 PG/ML (211-911)
[2025-05-11 13:27] LABS: TOTAL 25(OH) VITAMIN D 25.3 NG/ML (20.0-100.0)
[2025-05-11 13:44] LABS: ESTIMATED AVERAGE GLUCOSE 103.0 MG/DL (60-110)
== END ==
LOC: M LAB REF 11:59
PROVIDERS: ATTEND Student in an Organized Health Care Education/Training Program
DX: Z68.22 Body mass index [BMI] 22.0-22.9, adult (principal); D50.9 Iron deficiency anemia, unspecified; E55.9 Vitamin D deficiency, unspecified